=== PATIENT | female | born 1955 | race Caucasian/White ===

== ENCOUNTER → 2016-12-28 | Outpatient (CLI) | payer BC ==
[~2016-12-28] MED LIST: SIMV20TA2 PO
--- NOTE | 2016-12-28 13:57 | MAMMOGRAPHY REPORT ---
BILATERAL DIGITAL SCREENING MAMMOGRAM WITH CAD: 12/28/2016 CLINICAL HISTORY: Routine screening. Patient has no complaints. TECHNIQUE: Current study was also evaluated with a Computer Aided Detection (CAD) system. Bilatera l CC and MLO views were obtained. COMPARISON: Comparison is made to exams dated: 12/26/2015 mammogram, 07/17/2013 mammogram, 10/12/2014 mammogram, 07/16/2012 mammogram, 04/24/2011 mammogram, and 04/18/2010 mammogram - [facility]. BREAST COMPOSITION: The tissue of both breasts is heterogeneously dense, which may obscure small ma sses. FINDINGS: No suspicious masses, calcifications, or areas of architectural distortion are noted in e ither breast. There has been no significant interval change compared to prior exams. IMPRESSION: ACR BI-RADS CATEGORY 1: NEGATIVE There is no mammographic evidence of malignancy. A 1 year screening mammogram is recommended. The p atient will receive written notification of the results. Approximately 10% of breast cancers are not detected with mammography. A negative mammographic repor t should not delay biopsy if a clinically suggestive mass is present. Jennifer Barlow M.D. ah/:12/28/2016 10:49:00 Dean Of Student Services: Raya ESPARZA(R)(M), [facility] letter sent: Normal 1/2 BI-RADS Code: ACR BI-RADS Category 1: Negative
== END | disposition home or self-care (01) ==
LOC: C.MAMM 10:30
PROVIDERS: ATTEND Family Medicine
DX: Z12.31 Encounter for screening mammogram for malignant neoplasm of breast (principal)

== ENCOUNTER → 2018-01-01 | Outpatient (CLI) | payer OTHER ==
--- NOTE | 2018-01-01 15:53 | MAMMOGRAPHY REPORT ---
BILATERAL DIGITAL SCREENING MAMMOGRAM TOMOSYNTHESIS WITH CAD: 01/01/2018 CLINICAL HISTORY: Routine screening. TECHNIQUE: Breast tomosynthesis in addition to standard 2D mammography was performed. Current study was also evaluated with a Computer Aided Detection (CAD) system. COMPARISON: Comparison is made to exams dated: 12/28/2016 mammogram, 12/26/2015 mammogram, 10/12/2014 m ammogram, 07/17/2013 mammogram, 07/16/2012 mammogram, and 04/24/2011 mammogram - [facility] enter. BREAST COMPOSITION: The tissue of both breasts is heterogeneously dense, which may obscure small mas ses. FINDINGS: There is a possible small area of architectural distortion in the superior, middle to post erior right breast on the MLO view (tomosynthesis slice 19/57), thought to project laterally based on the tomosynthesis localizer bar but not clearly identified on the CC view. Additional spot compress ion tomosynthesis views and possible ultrasound are recommended. There are possible grouped faint pu nctate microcalcifications in the superior left breast, warranting additional spot magnification view s. No other suspicious masses, calcifications, asymmetries or areas of architectural distortion are iden tified bilaterally. IMPRESSION: ACR BI-RADS CATEGORY 0: INCOMPLETE EVALUATION: NEED ADDITIONAL IMAGING EVALUATION The possible area of architectural distortion in the superior, middle to posterior right breast and p ossible punctate microcalcifications in the superior left breast need additional imaging evaluation. The patient will be called to schedule an appointment. Approximately 10% of breast cancers are not detected with mammography. A negative mammographic report should not delay biopsy if a clinically suggestive mass is present. Ana Kyle M.D. ay/:01/01/2018 10:14:35 Automobile Body Customizer: Jesus ESPARZA(Gustavo)(David), [facility] letter sent: Addl Imaging 0 BI-RADS Code: ACR BI-RADS Category 0: Incomplete Evaluation: Need Additional Imaging Evaluation
== END | disposition home or self-care (01) ==
LOC: C.MAMM 09:35
PROVIDERS: ATTEND Family Medicine
DX: Z12.31 Encounter for screening mammogram for malignant neoplasm of breast (principal); R92.8 Other abnormal and inconclusive findings on diagnostic imaging of breast

== ENCOUNTER → 2018-01-17 | Outpatient (CLI) | payer OTHER ==
--- NOTE | 2018-01-17 13:55 | MAMMOGRAPHY REPORT ---
BILATERAL DIGITAL DIAGNOSTIC MAMMOGRAM TOMOSYNTHESIS AND TARGETED RIGHT ULTRASOUND: 01/17/2018 CLINICAL HISTORY: Callback from screening mammogram for left breast calcifications and possible right breast architectural distortion. TECHNIQUE: Breast tomosynthesis in addition to standard 2D mammography was performed. Spot compress ion right CC and MLO 2D and tomosynthesis images and spot magnification left CC and ML views were obt ained. COMPARISON: Comparison is made to exams dated: 01/01/2018 mammogram, 12/28/2016 mammogram, 12/26/2015 m ammogram, 10/12/2014 mammogram, 07/17/2013 mammogram, and 07/16/2012 mammogram - [facility] enter. BREAST COMPOSITION: The tissue of both breasts is heterogeneously dense, which may obscure small mas ses. FINDINGS: Spot magnification views of the left breast demonstrate faint loosely grouped punctate calc ifications within the left upper outer quadrant. The calcifications are stable compared to spot magn ification views from April 2009 and September 2008, and are considered benign given the long-term stabi lity. The previously described possible area of architectural distortion seen within the right superior lise ast on the MLO view is less prominent on the additional spot compression views and has the appearance of fibroglandular tissue when reviewing the spot compression tomosynthesis images. No clear archite ctural distortion is noted on the additional views. Additionally, the region appears similar on 2D v iews to multiple prior exams including the 2015 and 2013 exams. Targeted ultrasound was performed of the right superior breast in the region of the mammographic asym metry. The background parenchymal echotexture is heterogeneous, with multiple areas of shadowing see n which do not persist on orthogonal imaging. The heterogeneous shadowing tissue decreases the sensi tivity of the exam, however, no persistent suspicious shadowing lesion is seen. Incidentally noted in the right breast at 9:00, 2 cm from the nipple, is an oval circumscribed parallel benign-appearing h ypoechoic 9 x 4 x 7 mm mass. This mass is probably benign and may represent a fibroadenoma. Options of short interval follow-up versus core needle biopsy were discussed with this patient, and at this time we will opt for short interval follow-up. IMPRESSION: ACR-BI-RADS CATEGORY 3: PROBABLY BENIGN, TARGETED ULTRASOUND ACR-BI-RADS CATEGORY 3: PRO BABLY BENIGN 1. The questionable architectural distortion within the right superior breast does not clearly persi st on additional spot compression views, without a suspicious sonographic correlate evident. The fin ding is probably benign and likely represents normal fibroglandular tissue. Recommend follow-up diag nostic tomosynthesis mammograms of the right breast in 6 months to confirm stability. 2. Incidentally noted 9 mm circumscribed benign-appearing mass in the right 9:00 breast on ultrasoun d. The mass is probably benign and likely represents a fibroadenoma. Recommend follow-up diagnostic tomosynthesis mammograms and repeat targeted ultrasound of the right breast in 6 months to confirm s tability given that it is newly visualized on imaging. 3. Loosely grouped benign-appearing calcifications in the left upper outer quadrant are stable datin g back to at least the 2007 exam and considered benign given long-term stability. The patient has been verbally notified of the results. Approximately 10% of breast cancers are not detected with mammography. A negative mammographic report should not delay biopsy if a clinically suggestive mass is present. Jenniefr Barlow M.D. ah/:01/17/2018 12:04:59 Osteopathic Medicine Teacher: Lilli ESPARZA(Gustavo)(M), [facility] letter sent: Follow Up Recommended 3 BI-RADS Code: ACR-BI-RADS Category 3: Probably Benign Ultrasound BI-RADS: ACR-BI-RADS Category 3: Pr obably Benign
== END | disposition home or self-care (01) ==
LOC: C.MAMM 11:17
PROVIDERS: ATTEND Family Medicine
DX: R92.8 Other abnormal and inconclusive findings on diagnostic imaging of breast (principal); N63.10 Unspecified lump in the right breast, unspecified quadrant; R92.1 Mammographic calcification found on diagnostic imaging of breast